=== PATIENT | male | born 1945 ===

== ENCOUNTER 2020-08-06 10:10 | Day surgery (SDC) | payer MEDICARE, MEDICAID ==
[~2020-08-06 10:10] MED LIST: Bupivacaine 0.25% 10 ML SDV ONE; Lactated Ringers 1,000 ML IV SCH; Sodium Chloride 0.9% 10 ML SDV IV PRN; Sodium Chloride 0.9% 10 ML Syringe FLUSH PRN; Sodium Chloride 0.9% 2.5 ML Syringe FLUSH PRN; ceFAZolin 1 GM in Premix Bag 1 BAG IV ONE
[2020-08-06] MEDS ORDERED: Ondansetron 4 MG/2 ML SDV ONE (10:49)
[2020-08-06] MEDS ORDERED: fentaNYL 100 MCG/2 ML SDV ONE (10:50)
[2020-08-06] MEDS ORDERED: Propofol 200 MG/20 ML SDV ONE (10:50)
[2020-08-06] MEDS ORDERED: ceFAZolin 1 GM Vial ONE (10:59)
[2020-08-06] MEDS ORDERED: Sodium Chloride 0.9% 20 ML ONE (10:59)
--- NOTE | 2020-08-06 10:59 | PCM.PREANE ---
Preanesthetic Assessment - Anesthesia/Transfusion/Family Hx Anesthesia History: Prior Anesthesia Without Reaction Family History of Anesthesia Reaction: No Transfusion History: No Prior Transfusion(s) - Review of Systems General: No Symptoms Pulmonary: No Symptoms Cardiovascular: No Symptoms Gastrointestinal: No Symptoms Neurological: No Symptoms Other: Reports: None - Physical Assessment NPO Status Date: 08/05/20 NPO Status Time: 23:00 Vital Signs: 166/75, 18, 68, spo2 97%, temp 36.1 Height: 1.73 m Weight: 69.4 kg ASA Class: 3 Mental Status: Alert & Oriented x3 Airway Class: Mallampati = 2 Dentition: Reports: Dentures, Edentulous Thyro-Mental Finger Breadths: 3 Mouth Opening Finger Breadths: 3 ROM/Head Extension: Full Lungs: Clear to Auscultation, Normal Respiratory Effort Cardiovascular: Regular Rate, Regular Rhythm - Lab Values: Laboratory Last Values WBC 21.49 K/uL (4.0-11.0) H 08/06/20 10:05 RBC 4.35 M/uL (4.50-5.90) L 08/06/20 10:05 Hgb 13.3 g/dL (13.0-17.0) 08/06/20 10:05 Hct 40.0 % (38.0-50.0) 08/06/20 10:05 MCV 92.0 fL (80.0-98.0) 08/06/20 10:05 MCH 30.6 pg (27.0-32.0) 08/06/20 10:05 MCHC 33.3 g/dL (31.0-37.0) 08/06/20 10:05 RDW Std Deviation 46.5 fl (28.0-62.0) 08/06/20 10:05 RDW Coeff of You 14 % (11.0-15.0) 08/06/20 10:05 Plt Count 238 K/uL (150-400) 08/06/20 10:05 MPV 9.50 fL (7.40-12.00) 08/06/20 10:05 Neut % (Auto) 24.5 % (48.0-80.0) L 08/06/20 10:05 Lymph % (Auto) 69.8 % (16.0-40.0) H 08/06/20 10:05 [place] % (Auto) 4.1 % (0.0-15.0) 08/06/20 10:05 Eos % (Auto) 1.5 % (0.0-7.0) 08/06/20 10:05 Baso % (Auto) 0.1 % (0.0-1.5) 08/06/20 10:05 Neut # (Auto) 5.3 K/uL (1.4-5.7) 08/06/20 10:05 Lymph # (Auto) 15.0 K/uL (0.6-2.4) H 08/06/20 10:05 [place] # (Auto) 0.9 K/uL (0.0-0.8) H 08/06/20 10:05 Eos # (Auto) 0.3 K/uL (0.0-0.7) 08/06/20 10:05 Baso # (Auto) 0.0 K/uL (0.0-0.1) 08/06/20 10:05 Nucleated RBC % 0.0 /100WBC 08/06/20 10:05 Nucleated RBCs # 0 K/uL 08/06/20 10:05 INR 1.00 08/06/20 10:05 APTT 25.9 SEC (18.6-31.3) 08/06/20 10:05 SARS-CoV-2 RNA (TONIE) NEGATIVE (NEGATIVE) 08/06/20 08:40 - Allergies Allergies/Adverse Reactions: Allergies Allergy/AdvReac Type Severity Reaction Status Date / Time No Known Allergies Allergy Verified 07/31/20 08:03 - Blood Blood Available: No - Acknowledgements Anesthesia Type Planned: General Anesthesia Pt an Appropriate Candidate for the Planned Anesthesia: Yes Alternatives and Risks of Anesthesia Discussed w Pt/Guardian: Yes Pt/Guardian Understands and Agrees with Anesthesia Plan: Yes PreAnesthesia Questionnaire HEENT History: Reports: Other (See Below) Other HEENT History: to and bottom dentures Cardiovascular History: Reports: Blood Clots/VTE/DVT (stopped taking eliquis and aspirin 10 days ago), High Cholesterol, Hypertension, PVD (chronic non healing ulceration of lower extremity secondary to chronic venous insufficiency), Other (See Below) (carotid artery stenosis asymptomatic, peripheral arterial disease) Other Cardiovascular History: hx DVT Respiratory History: Reports: Other (See Below) (nicotine dependence) Gastrointestinal History: Reports: None Genitourinary History: Reports: BPH Musculoskeletal History: Reports: None Neurological History: Reports: TIA Other Neuro History: hx "mild stroke" which showed up on CT scan Psychiatric History: Reports: None Endocrine/Metabolic History: Reports: None Hematologic History: Reports: Anticoagulation Therapy Immunologic History: Reports: None Oncologic (Cancer) History: Reports: Leukemia Other Oncologic History: chronic lymphocytic leukemia Dermatologic History: Reports: None - Past Surgical History Head Surgeries/Procedures: Reports: None (stopped etoh March 2020) HEENT Surgical History: Reports: Cataract Surgery Cardiovascular Surgical History: Reports: None Respiratory Surgical History: Reports: None GI Surgical History: Reports: None Male Surgical History: Reports: None Endocrine Surgical History: Reports: None Neurological Surgical History: Reports: None Musculoskeletal Surgical History: Reports: Shoulder Surgery Oncologic Surgical History: Reports: None Dermatological Surgical History: Reports: None - SUBSTANCE USE Tobacco Use Status *Q: Former Tobacco User (quit March 2020) Second Hand Smoke Exposure: No Recreational Drug Use History: No - HOME MEDS Home Medications: Home Meds Apixaban [Eliquis] 5 mg PO DAILY 07/31/20 [History] Aspirin [Adult Aspirin Regimen] 81 mg PO DAILY 07/31/20 [History] Multivitamin 1 tab PO DAILY 07/31/20 [History] amLODIPine Besylate [Amlodipine Besylate] 10 mg PO BEDTIME 07/31/20 [History] atorvaSTATin Calcium [Atorvastatin Calcium] 40 mg PO DAILY 07/31/20 [History] lisinopriL [Lisinopril] 40 mg PO DAILY 07/31/20 [History] - CURRENT (IN HOUSE) MEDS Current Meds: Current Medications Lactated Ringer's (Ringers, Lactated) 1,000 mls @ 100 mls/hr IV ASDIRECTED DONTE Cefazolin Sodium/Dextrose 1 gm (/ Premix) 50 mls @ 100 mls/hr IV ONCALL ONE Stop: 08/06/20 06:29 Sodium Chloride (Saline Flush) 2.5 ml FLUSH ASDIRECTED PRN PRN Reason: Keep Vein Open Sodium Chloride (Normal Saline) 10 ml IV ASDIRECTED PRN PRN Reason: IV Use Sodium Chloride (Saline Flush) 10 ml FLUSH ASDIRECTED PRN PRN Reason: Keep Vein Open
[2020-08-06] MEDS ORDERED: Dexamethasone 4 MG/ML 5 ML MDV ONE (11:00)
[2020-08-06] MEDS ORDERED: Morphine 10 MG/ML Syringe ONE (11:05)
[2020-08-06] MEDS ORDERED: ePHEDrine 50 MG/ML SDV ONE (11:18)
--- NOTE | 2020-08-06 12:35 | PCM.POSTAN ---
POST ANESTHESIA ASSESSMENT - MENTAL STATUS Mental Status: Alert, Oriented - VITAL SIGNS Vital Signs: Last Vital Signs Temp 36.2 C 08/06/20 12:10 Pulse 69 08/06/20 12:30 Resp 15 08/06/20 12:30 BP 143/64 H 08/06/20 12:30 Pulse Ox 93 L 08/06/20 12:30 - RESPIRATORY Respiratory Status: Respiratory Rate WNL, Airway Patent, O2 Saturation Stable - CARDIOVASCULAR CV Status: Pulse Rate WNL, Blood Pressure Stable - GASTROINTESTINAL GI Status: No Symptoms - PAIN Pain Score: 0 - POST OP HYDRATION Hydration Status: Adequate & Stable - OBSERVATIONS Free Text/Narrative:: The patient tolerated the procedure well. There were no apparent anesthetic complications at this time. Discharge to phase 2 per criteria.
--- NOTE | 2020-08-06 13:09 | OR ---
SURGEON: Casey Hall M.D. DATE OF PROCEDURE: 08/06/2020 PREOPERATIVE DIAGNOSIS: Large left-sided hydrocele. POSTOPERATIVE DIAGNOSIS: Large left-sided hydrocele. OPERATION: Hydrocele repair. DESCRIPTION OF PROCEDURE: The patient was given general anesthesia. He was in the supine position. External genital area was prepped and draped in sterile drapes. A transverse incision was made in the scrotal sac. The fluid was sucked out of the sac. The testicle was normal. The lining of the hydrocele sac was dissected further back to approximately [address]. Then, the tunica vaginalis was plicated using 3-0 chromic running sutures all the way around to keep it open and prevent it from closing again. With that done, the skin with the subcutaneous muscle was closed with interrupted mattress 3-0 chromic sutures. A drain was left in place, a dressing was applied, and the patient was moved to recovery room in good condition. Estimated blood loss under 20 mL. The patient tolerated the procedure well and was moved to recovery room in good condition. He will come to my office in 2 days for me to remove the drain, then he can go home to his hometown. EJ / JUNIE /[id number]
--- NOTE | 2020-08-06 13:52 | PCM48HPAN ---
Post Anesthesia Note - EVALUATION WITHIN 48HRS OF ANESTHETIC Vital Signs in Normal Range: Yes Patient Participated in Evaluation: Yes Respiratory Function Stable: Yes Airway Patent: Yes Cardiovascular Function Stable: Yes Hydration Status Stable: Yes Pain Control Satisfactory: Yes Nausea and Vomiting Control Satisfactory: Yes Mental Status Recovered: Yes Vital Signs: Last Vital Signs Temp 36.2 C 08/06/20 12:10 Pulse 69 08/06/20 12:30 Resp 15 08/06/20 12:30 BP 143/64 H 08/06/20 12:30 Pulse Ox 93 L 08/06/20 12:30 - COMMENTS/OBSERVATIONS Free Text/Narrative:: The patient has no complaints at this time. The patient's brother was at the bedside at discharge. He has no questions. Discharge per criteria.
[2020-08-06] MEDS ORDERED: amLODIPine 5 MG Tab PO SCH (21:00)
[2020-08-06] MEDS ORDERED: atorvaSTATin 40 MG Tab PO SCH (21:00)
[2020-08-07] MEDS ORDERED: Lisinopril 10 MG Tab PO SCH (09:00)
== END 2020-08-06 13:40 | disposition home or self-care (01) ==
LOC: MW.SDS 10:10
PROVIDERS: ATTEND Urology
DX: N43.3 Hydrocele, unspecified (principal); N43.2 Other hydrocele; I10 Essential (primary) hypertension; E78.00 Pure hypercholesterolemia, unspecified; N50.89 Other specified disorders of the male genital organs; C91.10 Chronic lymphocytic leukemia of B-cell type not having achieved remission; I77.9 Disorder of arteries and arterioles, unspecified; I87.8 Other specified disorders of veins; L97.909 Non-pressure chronic ulcer of unspecified part of unspecified lower leg with unspecified severity; Z01.812 Encounter for preprocedural laboratory examination; Z20.822 Contact with and (suspected) exposure to COVID-19; Z79.899 Other long term (current) drug therapy; Z79.82 Long term (current) use of aspirin; Z98.890 Other specified postprocedural states; Z87.891 Personal history of nicotine dependence
CPT/HCPCS: 00920; 36415; 83880; 85025; 85610; 85730; J0131; J0690; J1100; J2270; J2405; J2704; J3010; J3490; J7120; U0002